=== PATIENT | female | born 1975 | race Caucasian/White ===

== ENCOUNTER 2017-01-11 10:29 | Emergency (ER) | payer OTHER ==
[2017-01-11 10:35] VITALS: BP 136/96; PULSE 69; RESP 20; TEMP 98.5
[2017-01-11] MEDS ORDERED: IBUPROFEN 600 MG TAB PO STA (10:52)
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
== END 2017-01-11 11:30 | disposition home or self-care (01) ==
LOC: EC 10:29
DX: S63.502A Unspecified sprain of left wrist, initial encounter (principal); S80.212A Abrasion, left knee, initial encounter; Z88.5 Allergy status to narcotic agent; Z88.6 Allergy status to analgesic agent; Z91.040 Latex allergy status; V17.4XXA Pedal cycle driver injured in collision with fixed or stationary object in traffic accident, initial encounter; Y92.410 Unspecified street and highway as the place of occurrence of the external cause; Y93.55 Activity, bike riding
CPT/HCPCS: 99283